=== PATIENT | male | born 1935 | race Caucasian/White ===

== ENCOUNTER 2019-08-02 17:19 | Emergency (ER) | payer OTHER ==
[~2019-08-02] VITALS: Ht 172.7 cm; Wt 86.6 kg
[2019-08-02 17:25] VITALS: BP 146/63
[2019-08-02] MEDS ORDERED: AMLO5TAB PO (18:02)
[2019-08-02] MEDS ORDERED: FURO-572 PO (18:02)
[2019-08-02] MEDS ORDERED: HYDR100T79 PO (18:02)
[2019-08-02] MEDS ORDERED: METO50TE2 PO (18:02)
[2019-08-02] MEDS ORDERED: ALEN70TA9 PO (18:02)
[2019-08-02] MEDS ORDERED: CHOL1POW67 (18:02)
[2019-08-02] MEDS ORDERED: RIVA15TA1 PO (18:02)
[2019-08-02] MEDS ORDERED: [UNRECOGNIZED DRUG - CODE] PO (18:02)
[2019-08-02] MEDS ORDERED: FENO145T PO (18:02)
[2019-08-02] MEDS ORDERED: ACAR100T1 PO (18:02)
[2019-08-02] MEDS ORDERED: FLUT1POW3 IH (18:02)
[2019-08-02 18:06] LABS: BASOPHILS % (AUTO) 0.4 % (0.0-2.0); EOSINOPHILS # (AUTO) 0.4 K/uL (0-0.4); EOSINOPHILS % (AUTO) 4.2 % (0.0-4.0); HEMATOCRIT 43.9 % (36-52); HEMOGLOBIN 14.3 g/dL (12.0-18.0); LYMPHOCYTES % (AUTO) 23.7 % (20.5-51.1); MEAN CORPUSCULAR HEMOGLOBIN 30 pg (27-31); MEAN CORPUSCULAR HGB CONC 33 g/dL (33-37); MEAN CORPUSCULAR VOLUME 92.7 fL (80-94); MONOCYTES # (AUTO) 0.7 K/uL (0.8-1.0); MONOCYTES % (AUTO) 8.5 % (1.7-9.3); NEUTROPHILS # (AUTO) 5.3 K/uL (1.8-7.7); NEUTROPHILS % (AUTO) 63.2 % (42.2-75.2); PLATELET COUNT (AUTO) 182 K/uL (140-450); RED BLOOD CELL COUNT(AUTO) 4.74 MIL/uL (4.20-6.10); RED CELL DISTRIBUTION WIDTH 14.3 % (11.6-13.7); WHITE BLOOD COUNT (AUTO) 8.4 K/uL (4.8-10.8)
[2019-08-02 18:25] LABS: PROTHROMBIN TIME 11.6 secs (10.8-13.4)
[2019-08-02 18:28] LABS: ALBUMIN 3.6 g/dL (3.4-5.0); ANION GAP 14.7 (8-16); ASPARTATE AMINOTRANSFERASE 18 U/L (15-37); CARBON DIOXIDE 24.4 mmol/L (21-32); CHLORIDE 103 mmol/L (98-107); CREATININE 1.3 mg/dL (0.6-1.3); GLUCOSE 86 mg/dL (74-106); POTASSIUM 4.1 mmol/L (3.5-5.1); SODIUM SERUM 138 mmol/L (136-145); TOTAL BILIRUBIN 0.6 mg/dL (0.0-1.0); UREA NITROGEN, BLOOD 23 mg/dL (7-18)
[2019-08-02 18:42] LABS: APPEARANCE,URINE CLEAR (CLEAR); BILIRUBIN,URINE NEGATIVE (NEGATIVE); BLOOD, URINE TRACE-I (NEGATIVE); COLOR,URINE YELLOW (YELLOW); LEUKOCYTE ESTERASE ,URINE 1+ (NEGATIVE); NITRITE, URINE POSITIVE (NEGATIVE); UGLUCOSE NEGATIVE (NEGATIVE)
[2019-08-02 19:01] LABS: RBC,URINE 0-5 /HPF (0-5)
[2019-08-02] MEDS ORDERED: ASPIRIN 81 MG TAB.CHEW PO ONE (21:05)
[2019-08-02] MEDS ORDERED: LEVOFLOXACIN 500 MG/D5W PREMIX 100 ML IV ONE ×2 (22:28→22:30)
[2019-08-02] MEDS ORDERED: hydrALAZINE 20 MG/ML VIAL ONE (22:54)
[2019-08-02] MEDS ORDERED: hydrALAZINE 20 MG/ML VIAL IVP ONE (22:55)
[2019-08-02 23:40] VITALS: BP 119/62
== END 2019-08-02 23:39 | disposition short-term general hospital (02) ==
LOC: MED 17:19
DX: I48.91 Unspecified atrial fibrillation (principal); E11.9 Type 2 diabetes mellitus without complications; I51.89 Other ill-defined heart diseases; I10 Essential (primary) hypertension; K46.9 Unspecified abdominal hernia without obstruction or gangrene; N28.9 Disorder of kidney and ureter, unspecified; Z79.899 Other long term (current) drug therapy; Z87.81 Personal history of (healed) traumatic fracture; Z87.448 Personal history of other diseases of urinary system
CPT/HCPCS: 36415; 70450; 71045; 80053; 81001; 83880; 84484; 85025; 85610; 85730; 87086; 93005; 96365; 96375; 99291; J0360; J1956; Q0092; 87186